=== PATIENT | male | born 1945 | race Caucasian/White ===

== ENCOUNTER → 2017-06-05 | Outpatient (CLI) | payer MEDICARE ==
--- NOTE | 2017-06-05 09:56 | RAD ---
EXAM DESCRIPTION: Knee,Left Complete CLINICAL HISTORY: 72 years,Male,KNEE PAIN COMPARISON: None FINDINGS: The left knee demonstrates no fractures, dislocations, or other acute bony abnormalities. The joint spaces complete loss of joint space and medial compartment with subchondral sclerosis. And moderate osteophyte changes. This results in widening of the lateral compartment also has moderate ossified changes. And moderate osteophytes of the patellofemoral compartment with moderate loss of joint space. And large enthesophytes on the patella with the patellar tendon being 1.4 cm long enthesophyte and the quadriceps 9 mm. The soft tissues are unremarkable. No joint effusion. IMPRESSION: Left knee demonstrates severe medial compartment osteoarthritic changes and moderate patellofemoral. And mild lateral. Electronically signed by: Yusef Kang MD 06/05/2017 9:54 AM CDT
--- NOTE | 2017-06-05 09:58 | RAD ---
EXAM DESCRIPTION: Pelvis CLINICAL HISTORY: 72 years, Male, HIP PAIN COMPARISON: None. FINDINGS: Pelvis demonstrates no fractures or other acute adenitis. Mild ossified changes seen in the inferior SI joints. Mild loss of joint space and superior aspect of the hip joints. IMPRESSION: Mild SI joint and hip joint bilateral osteoarthritic changes of the pelvis. And mild loss of disc height at L4-5. Electronically signed by: Yusef Kang MD 06/05/2017 9:56 AM CDT
== END | disposition home or self-care (01) ==
LOC: RAD 08:05
PROVIDERS: ATTEND Orthopaedic Surgery
DX: M25.561 Pain in right knee (principal); M25.551 Pain in right hip

== ENCOUNTER → 2017-07-01 | Outpatient (CLI) | payer MEDICARE | END | disposition home or self-care (01) | LOC: LAB.O 08:32 | PROVIDERS: ATTEND Orthopaedic Surgery | DX: Z01.818 Encounter for other preprocedural examination (principal) ==

== ENCOUNTER → 2017-07-09 | Outpatient (CLI) | payer MEDICARE | END | disposition home or self-care (01) | LOC: GMAL 14:15 | PROVIDERS: ATTEND Family Medicine | DX: R30.0 Dysuria (principal) ==

== ENCOUNTER 2017-07-18 18:41 | Emergency (ER) | payer MEDICARE ==
[2017-07-18 19:16] VITALS: O2SAT 97
--- NOTE | 2017-07-18 19:30 | ED.PDOC ---
History of Present Illness - General Chief Complaint: Upper Extremity Injury Stated Complaint: left wrist pain Time Seen by Provider: 07/18/17 18:47 Source: patient Exam Limitations: no limitations Additional Information: THIS PATIENT COMES TO THE ED WITH A ONE WEEK HX OF LEFT WRIST PAIN. IT SEEMS TO HURT UPON MOVEMENT. HIS FATHER IN LAW RECENTLY AND HE ASSISTED IN THE MOVEMENT FROM THE BED TO THE CHAIR ETC. HE BELIEVES THAT HE INJURED THE WRIST THEN. DENIES ANY FEVER. - History of Present Illness Occurred: other - ONE WEEK AGO Pain - Upper Extremity: moderate: Wrist, left Method of Injury: twisted Improving Factors: nothing Worsening Factors: movement Associated Symptoms: DENIES FEVER OR CHEST PAIN. Allergies/Adverse Reactions: Allergies NO KNOWN ALLERGY Allergy (Verified 07/18/17 19:16) Home Medications: Ambulatory Orders Diclofenac Potassium 50 mg PO BID #14 tab 07/18/17 Review of Systems - Review of Systems Constitutional: States: no symptoms reported. Denies: chills, fever EENTM: States: no symptoms reported Respiratory: States: no symptoms reported Cardiology: Denies: chest pain, palpitations, syncope Gastrointestinal/Abdominal: States: no symptoms reported Genitourinary: States: no symptoms reported Musculoskeletal: States: back pain, other - LEFT SIDED WRIST PAIN Skin: States: no symptoms reported Neurological: States: no symptoms reported Endocrine: States: no symptoms reported Hematologic/Lymphatic: States: no symptoms reported Past Medical History (General) - Patient Medical History Hx Cardiac Disorders: Yes - stent Hx Diabetes: Yes Surgical History: other - Vaccination History Hx Tetanus, Diphtheria Vaccination: Yes Hx Influenza Vaccination: No Hx Pneumococcal Vaccination: Yes - Social History Hx Alcohol Use: No Family Medical History - Family History Father Living Status: Hx Cardiac Disease: Yes Physical Exam - Physical Exam General Appearance: Alert, Obese, Well Groomed, Other - MILD DISTRESS Eyes, Ears, Nose, Throat Exam: PERRL/EOMI, normal ENT inspection Neck: non-tender, full range of motion, supple Cardiovascular/Respiratory: regular rate, rhythm, normal peripheral pulses, no JVD, normal breath sounds, no respiratory distress Abdominal Exam: non-tender, no organomegaly, no hernia Back Exam: normal inspection Shoulder Exam: normal inspection Wrist Exam: limited ROM, pain, soft tissue tenderness Hand Exam: normal inspection, non-tender, no evidence of injury, normal ROM Neuro/Tendon: normal sensation, normal motor functions, normal tendon functions Mental Status: alert, oriented x 3 Skin Exam: normal color Progress - Results/Orders Results/Orders: THE WRIST X RAY REPORTS NO FRACTURE OR DISLOCATION. DJD IS NOTED. HE WILL BE DISCHARGED HOME. Departure - Departure Clinical Impression: Left wrist sprain Qualifiers: Encounter type: initial encounter Qualified Code(s): S63.502A - Unspecified sprain of left wrist, initial encounter Time of Disposition: 20:09 Disposition: Discharge to Home or Self Care Condition: Good Departure Forms: ED Discharge - Pt. Copy, Patient Portal Self Enrollment Instructions: DI for Arm Pain Referrals: Yusef Eagle III, MD [Primary Care Provider] - 1-2 Weeks Prescriptions: Diclofenac Potassium 50 mg PO BID #14 tab Home Medications: Ambulatory Orders Diclofenac Potassium 50 mg PO BID #14 tab 07/18/17
--- NOTE | 2017-07-18 19:40 | RAD ---
PROCEDURE: Wrist,Left 3 Views CLINICAL HISTORY: left wrist pain INDICATION: Same as above COMPARISON: None. TECHNIQUE: 3.0 Views of the left wrist were done. FINDINGS: There is no evidence of acute fractures or dislocation involving the bones of the left wrist. Degenerative changes seen at the level of the first carpometacarpal joint. Degenerative changes also seen in the interphalangeal joints of the second through the fifth digit of the left hand The joint spaces of the left wrist are relatively well-maintained. The bone mineralization is normal for patient's age and sex. The soft tissues are radiographically unremarkable. There is no visualization of any radiopaque foreign bodies. If the wrist pain persists, repeat films can be done in 7-10 days interval to rule out currently radiographically occult fractures. Alternatively an MRI of the wrist can be obtained to rule out any occult fractures or bone marrow edema. IMPRESSION: There is no evidence of acute fractures or dislocation involving the bones of the left wrist. Degenerative changes seen at the level of the first carpometacarpal joint. Degenerative changes also seen in the interphalangeal joints of the second through the fifth digit of the left hand Place of interpretation: [id number]. Electronically signed by: Lui Fuentes MD 07/18/2017 7:39 PM CDT Workstation: [id number]
[2017-07-18 20:34] VITALS: BP 124/93; TEMP 97.2
== END 2017-07-18 20:30 | disposition home or self-care (01) ==
LOC: ER 18:41
DX: S63.502A Unspecified sprain of left wrist, initial encounter (principal); E11.9 Type 2 diabetes mellitus without complications; Z98.61 Coronary angioplasty status; X58.XXXA Exposure to other specified factors, initial encounter; Y92.9 Unspecified place or not applicable

== ENCOUNTER 2017-08-06 03:58 | Inpatient (IN) | payer MEDICARE ==
--- NOTE | 2017-08-05 15:42 | HP ---
CHIEF COMPLAINT: Left knee pain. HISTORY OF PRESENT ILLNESS: Mr. Leal is a 72-year-old male with a history of severe pain in the left knee that has been getting progressively worse over the years. He has had a right total knee replacement done previously. He has had no trauma related to the onset of his left knee pain and denies any neurologic symptoms. He has had to use an assistive device for walking. He has had injections and anti-inflammatories in the past. Despite all these measures, he has failed to gain relief. He is requesting operative intervention because of that failure. After discussing the risks, benefits and alternatives to that, the patient has given informed consent. PAST SURGICAL HISTORY: 1. Total knee arthroplasty. MEDICATIONS: 1. NovoLog. 2. Isosorbide. 3. Losartan. 4. Metoprolol. 5. Aspirin. 6. Atorvastatin. 7. Nitroglycerin p.r.n. ALLERGIES: PENICILLIN. CODE STATUS: Full code. IMMUNIZATIONS: Up to date. SOCIAL HISTORY: The patient does not smoke or use any illicit drugs. He does drink on occasion. FAMILY HISTORY: None pertinent to today's complaint. REVIEW OF SYSTEMS: Negative except as indicated in the History of Present Illness. PHYSICAL EXAMINATION: VITAL SIGNS: Blood pressure 124/70. Pulse 73. Height 5'5". Weight 236. GENERAL: He is an obese male in no acute distress. MENTAL STATUS: The patient is awake, alert, and is able to give a good history and participate in the physical. The patient is oriented to person, place and time. SKIN: Normal tone and turgor. HEENT: Normocephalic, atraumatic. Pupils equal, round and reactive. Mucosal membranes are moist. NECK: Normal range of motion. No thyromegaly, no lymphadenopathy. CHEST: Normal respiratory excursion. CARDIAC: Regular rate and rhythm. No murmurs, rubs or gallops. MUSCULOSKELETAL: The bilateral upper extremities show full active range of motion without pain. He has intact sensation. They are warm and well perfused. He has no deformity. Strength is 5/5. He has no crepitus or malalignment. The right lower extremity shows full range of motion in the hip. The knee shows full extension, but flexion is only to about 85 to 90 degrees. He has a well-healed wound anteriorly. The left knee shows full extension, but flexion is only to about 90 degrees right now. He has crepitus throughout his range of motion. He has severe pain with range of motion as well as pain with palpation. He does not appear to have any varus/valgus or anterior/ posterior laxity at this time. IMAGING: X-rays show severe arthritis. ASSESSMENT: 1. Osteoarthritis. PLAN: The plan at this point is for total knee arthroplasty. We have discussed the risks, benefits, and alternatives to that and the patient has given informed consent. #[id number] [facility]
[2017-08-06] MEDS ORDERED: VANCOMYCIN HCL INJ 1,000 MG VIAL IVPB ONE ×2 (06:07→20:01)
[2017-08-06] MEDS ORDERED: LACTATED RINGERS 1,000 ML ONE ×2 (06:07→09:02)
[2017-08-06] MEDS ORDERED: ceFAZolin SODIUM 1 GM VIAL ONE ×2 (06:07→07:06)
[2017-08-06] MEDS ORDERED: TRANEXAMIC ACID 1,000 MG/10 ML VIAL ONE ×2 (06:07→06:08)
[2017-08-06] MEDS ORDERED: SODIUM CHL 0.9% 100ML MINI-BAG 100 ML IVPB ONE (06:07)
[2017-08-06] MEDS ORDERED: SODIUM CHLORIDE 0.9% 250ML 250 ML ONE ×2 (06:08→20:00)
[2017-08-06] MEDS ORDERED: SODIUM CHLORIDE 0.9% 100ML 100 ML IVPB ONE (06:08)
[2017-08-06] MEDS ORDERED: TRANEXAMIC ACID INJ 1,000 MG in SODIUM CHLORIDE 0.9% 100ML 100 ML IVPB ONE (06:52)
[2017-08-06] MEDS ORDERED: MAGNESIUM HYDROXIDE 30 ML UD PO PRN (06:52)
[2017-08-06] MEDS ORDERED: NALOXONE HCL INJ 0.4 MG/ML VIAL IV PRN (06:52)
[2017-08-06] MEDS ORDERED: ACETAMINOPHEN 500 MG TAB PO PRN (06:52)
[2017-08-06] MEDS ORDERED: ZOLPIDEM TARTRATE 5 MG TAB PO PRN (06:52)
[2017-08-06] MEDS ORDERED: PROMETHAZINE HCL INJ 12.5 MG in SODIUM CHLORIDE 0.9% 50ML 50 ML IVPB PRN (06:52)
[2017-08-06] MEDS ORDERED: PROMETHAZINE HCL INJ 25 MG in SODIUM CHLORIDE 0.9% 50ML 50 ML IVPB PRN (06:52)
[2017-08-06] MEDS ORDERED: ACETAMINOPHEN 325 MG TAB PO PRN (06:52)
[2017-08-06] MEDS ORDERED: MORPHINE SULFATE INJ 10 MG/ML VIAL IM PRN (06:52)
[2017-08-06] MEDS ORDERED: MORPHINE SULFATE INJ 10 MG/ML VIAL IV PRN (06:52)
[2017-08-06] MEDS ORDERED: BENZOCAINE-MENTH LOZ (CEPACOL) 1 EA LOZ MT PRN (06:52)
[2017-08-06] MEDS ORDERED: BISACODYL SUPPOSITORY 10 MG PR PRN (06:52)
[2017-08-06] MEDS ORDERED: MORPHINE PCA 1 MG/ML 100ML 1 BAG in PREMIX BAG 1 BAG IVPB SCH (07:00)
[2017-08-06] MEDS ORDERED: MORPHINE SULFATE *EPIDURAL* 0.5 MG/ML VIAL ONE (09:01)
[2017-08-06] MEDS ORDERED: fentaNYL CITRATE INJ 50 MCG/ML AMP ONE (09:01)
[2017-08-06] MEDS ORDERED: ROCURONIUM BROMIDE 10 MG/ML VIAL ONE (09:02)
[2017-08-06] MEDS ORDERED: PROPOFOL 200 MG/20 ML VIAL IV ONE (10:00)
[2017-08-06] MEDS ORDERED: ONDANSETRON INJ 4 MG/2 ML VIAL IV ONE (10:00)
[2017-08-06] MEDS ORDERED: NEOSTIGMINE METHYLSULFATE 1 MG/ML ML IV ONE (10:00)
[2017-08-06] MEDS ORDERED: METOCLOPRAMIDE HCL INJ 10 MG/2 ML VIAL IV ONE (10:00)
[2017-08-06] MEDS ORDERED: ATROPINE SULFATE 0.4 MG/ML 1ML VIAL IV ONE (10:00)
[2017-08-06] MEDS: BUPIVACAINE 0.25% W/EPI 50 ML VIAL INJ ONE ×2 (11:09→13:07)
[2017-08-06] MEDS: ceFAZolin SODIUM 1 GM VIAL ONE ×2 (11:09→12:21)
[2017-08-06] MEDS: VANCOMYCIN HCL INJ 1,000 MG VIAL IVPB ONE ×2 (11:09→12:21)
[2017-08-06] MEDS ORDERED: MORPHINE PCA 1 MG/ML 100 ML BAG IVPB ONE (12:36)
[2017-08-06] MEDS ORDERED: SODIUM CHLORIDE 0.9% 1000ML 0 ML ONE (15:24)
[2017-08-06] MEDS: IV SET AND CAP CHANGE INJ INJ SCH (15:28)
[2017-08-06] MEDS: MAGNESIUM OXIDE 400 MG TAB PO SCH (15:29)
[2017-08-06] MEDS: CELECOXIB 100 MG CAP PO SCH ×2 (15:29→16:44)
[2017-08-06] MEDS: SODIUM CHLORIDE 0.45% 1000ML 1,000 ML IVS PRN (15:34)
[2017-08-06] MEDS ORDERED: CEFAZOLIN SODIUM 2 GRAMS IV 2 GM in PREMIX BAG 1 BAG IVPB SCH (16:00)
[2017-08-06] MEDS ORDERED: diphenhydrAMINE HCL 25 MG CAP PO PRN (16:27)
[2017-08-06] MEDS ORDERED: diphenhydrAMINE HCL 25 MG CAP ONE (16:27)
[2017-08-06] MEDS: INSULIN LISPRO 100 UNITS/ML PEN SUBCU SCH ×2 (16:43→16:44)
[2017-08-06] MEDS ORDERED: CEFAZOLIN SODIUM 2 GRAMS IV 50 ML IVPB ONE (17:48)
[2017-08-06] MEDS ORDERED: VANCOMYCIN HCL INJ 1,000 MG in SODIUM CHLORIDE 0.9% 250ML 250 ML IVPB SCH (18:00)
[2017-08-06] MEDS: CEFAZOLIN SODIUM 2 GRAMS IV 2 GM in PREMIX BAG 1 BAG IVPB SCH (18:23)
--- NOTE | 2017-08-06 18:39 | CONS ---
DATE OF CONSULTATION: 08/06/17 HISTORY OF PRESENT ILLNESS: This 72 year-old white male was admitted to the hospital earlier this morning for elective surgical intervention because of worsening left knee pain. He had previously had surgery on his right knee and was replaced in 1993. Since then it has also gotten worse and will eventually require replacement by Dr. Maynard sometime next year. He has gotten on an exercise program and a diet intervention, and has lost about 40 pounds in recent months, but after moving to [place] to work. He was having to eat out in restaurants and gain most of that weight back subsequently with increasing pain in the left knee noted. No specific injuries were noted to the knee but that pain has been getting worse for the last 2 years. Also of note is the diabetes mellitus present currently on insulin therapy for the last 8 or 9 months being followed closely by Dr. [facility] The patient tolerated the surgical procedure quite well and is now entered into the postoperative rehabilitation phase, and will require close observation, management and followup until the patient is able to safely return home. PAST MEDICAL HISTORY: PAST SURGICAL HISTORY: 1. Right knee replacement surgery in 1993. 2. Coronary stent in the left main coronary in 2013 placed 1 week after onset of significant coronary symptoms with no specific coronary damage otherwise evident. CURRENT MEDICATIONS: Please refer to medicines list by the nurse which has been verified. ALLERGIES: PENICILLIN. FAMILY HISTORY: Positive for diabetes mellitus and coronary artery disease. 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 He has never smoked and rarely takes alcohol consumption. His is at home and they have recently moved into assist the 's mother after the 's father had recently. REVIEW OF SYSTEMS: Fairly significant weight gain recently with dietary principles not being able to be followed closely while having to work away from home. No significant fever or chills. HEENT: Hearing and vision are good. LUNGS: No significant shortness of breath except upon exertion. No hemoptysis. CARDIOVASCULAR: No significant chest pains recently or palpitations. GASTROINTESTINAL: Appetite is fairly good. No vomiting. No hemoptysis. Hematemesis and no melena. GENITOURINARY: No dysuria. EXTREMITIES: Significant pain in both knees more prominent now on the left requiring total knee replacement with previous replacement on the right requiring repeat surgical intervention at a future date. NEUROLOGIC: No focal neurological deficits. PHYSICAL EXAMINATION: VITAL SIGNS: Afebrile, pulse 69, blood pressure 151/71, pulse oximetry 92% on mask. Weight 149 stated by the patient. The patient will still need to be weighed. This weight is in kilograms. GENERAL: The patient is awake and alert, though resting in between. Pain relief has been fairly good with the morphine pump. The patients i describing an itching sensation which will be approached to see if it will be relieved by conservative treatment. CHEST: Lungs generally clear. HEART: Tones regular. ABDOMEN: Obese yet soft. EXTREMITIES: Left knee shows dressing is dry. The patient has completed the range of motion exercise and is tolerating the rest. NEUROLOGIC: No focal neurological deficits. LABORATORY: The only lab are sugars which are 196 now postoperatively and close to the time of his dinner of clear liquids. ASSESSMENT: 1. Immediate postoperative day zero total left knee arthroplasty performed by Dr. Maynard earlier this morning. 2. Chronic osteoarthritis with outpatient modalities failing to show improvement and requiring surgical intervention to assist with symptom control. 3. Diabetes mellitus insulin dependent requiring further monitoring and management of current treatment program. 4. Hypertension. 5. History of coronary artery disease having received a coronary stent 3 years ago. PLAN: Will continue with close observation with diabetes management. Sliding scale and adjust Toujeo concentrated insulin as required. Special attention to blood pressure management. Review medicines with the patient prior to discharge. Continue with rehabilitation under Physical Therapy and Orthopedic supervision until the patient is able to safely return home. Continue with efforts to control diabetes and to lose weight. Close followup suggested. #[id number] [facility]
[2017-08-06] MEDS ORDERED: DOCUSATE CALCIUM 240 MG CAP ONE (20:01)
[2017-08-06] MEDS ORDERED: ENOXAPARIN SODIUM 30 MG/0.3 ML SYG SUBCU ONE (20:01)
[2017-08-06] MEDS ORDERED: INSULIN GLARGINE 28 UNIT SC SCH (21:00)
[2017-08-06] MEDS: DOCUSATE CALCIUM 240 MG CAP PO SCH (21:15)
[2017-08-06] MEDS: VANCOMYCIN HCL INJ 1,000 MG in SODIUM CHLORIDE 0.9% 250ML 250 ML IVPB SCH (21:16)
[2017-08-06] MEDS: SODIUM CHLORIDE 0.9% (FLUSH) 10 ML SYG IV PRN (21:16)
[2017-08-06] MEDS: ENOXAPARIN SODIUM 30 MG/0.3 ML SYG SUBCU SCH (23:23)
[2017-08-07] MEDS ORDERED: CEFAZOLIN SODIUM 2 GRAMS IV 50 ML IVPB ONE ×4 (01:51→19:33)
--- NOTE | 2017-08-07 02:06 | RAD ---
EXAM DESCRIPTION: Knee,Left 2 or More Views CLINICAL HISTORY: 72 years Male, TKA COMPARISON: 06/05/2017 FINDINGS: Left total knee arthroplasty with hardware appearing to be in appropriate position. Postoperative changes within the soft tissues of the knee. Osteopenia. No acute fractures. IMPRESSION: 1. Immediate postoperative imaging of left total knee arthroplasty without abnormality identified. Electronically signed by: Lennox Noe 08/07/2017 2:05 AM CDT
[2017-08-07] MEDS: CEFAZOLIN SODIUM 2 GRAMS IV 2 GM in PREMIX BAG 1 BAG IVPB SCH ×3 (02:22→18:02)
[2017-08-07] MEDS ORDERED: SODIUM CHLORIDE 0.9% 250ML 250 ML ONE ×2 (07:18→19:33)
[2017-08-07] MEDS ORDERED: VANCOMYCIN HCL INJ 1,000 MG VIAL IVPB ONE ×2 (07:18→19:33)
[2017-08-07] MEDS: INSULIN LISPRO 100 UNITS/ML PEN SUBCU SCH ×6 (07:36→16:49)
[2017-08-07] MEDS: CELECOXIB 100 MG CAP PO SCH ×2 (07:39→16:54)
[2017-08-07] MEDS: MAGNESIUM OXIDE 400 MG TAB PO SCH (08:29)
[2017-08-07] MEDS: LOSARTAN POTASSIUM 100 MG TAB PO SCH (08:29)
[2017-08-07] MEDS: METOPROLOL SUCCINATE XL 25 MG TAB PO SCH (08:29)
--- NOTE | 2017-08-07 08:34 | OP ---
DATE OF PROCEDURE: 08/06/17 PREOPERATIVE DIAGNOSIS: 1. Osteoarthritis of the left knee. POSTOPERATIVE DIAGNOSIS: 1. Osteoarthritis of the left knee. PROCEDURE: 1. Left total knee arthroplasty. SURGEON: Travis Maynard MD. BEAD WORKER SEWING: Isrrael Chun CST, SA-C. ANESTHESIA: General. COMPLICATIONS: None. FINDINGS: Severe osteoarthritis of the knee. INDICATION: Mr. Leal has had a long history of pain in the knee and has had contralateral total knee replacement. He has had severe pain going on now on his left knee that has been disabling. He has also noticed increasing varus deformity which is necessitating him to use a cane. Because of his ongoing pain and failure of conservative measures and effects on daily living, he has requested operative intervention. After discussing the risks, benefits and alternatives to that, the patient has given informed consent for total knee arthroplasty. PROCEDURE: The patient was brought to the Operating Room and placed in supine position. General anesthesia was induced and the patient's leg was sterilely prepped and draped. Following prepping and draping, the distal femur was exposed and using an intramedullary guide, the distal femoral cut was made. The appropriate sized cutting block was measured, pinned into place, and the anterior, posterior, and chamfer cuts were made. The ACL was transected and the tibia was subluxed. Both the medial and lateral menisci were removed. An intramedullary guide was used to make the proximal tibial cut. The appropriate sized base plate was placed and a trial polyethylene was placed. The trial femur was placed, the knee was reduced, and the knee was taken through a range of motion. The knee was stable in anterior, posterior, varus and valgus stress. The patella tracked anatomically without evidence of subluxation or dislocation. After trialing, the trial components were removed and the bony surfaces were thoroughly irrigated with saline. Following irrigation, the surfaces were dried and the final components were cemented into place. The excess cement was removed and the remaining cement was allowed to cure. The knee was again taken through a range of motion to confirm stability. The wound was then irrigated with saline and closure was performed using PDS to approximate the arthrotomy followed by closure of the subcutaneous tissues with a combination of running and interrupted Monocryl sutures. Sterile dressing was placed. The patient was awoken from anesthesia and taken to Recovery. POSTOPERATIVE INSTRUCTIONS: The patient will be weight-bearing as tolerated on postoperative day 1. COMPONENTS: Tyler Triathlon knee, size 5 femur, size 5 tibia, 11 mm insert. #[id number] [facility]
[2017-08-07] MEDS: VANCOMYCIN HCL INJ 1,000 MG in SODIUM CHLORIDE 0.9% 250ML 250 ML IVPB SCH ×2 (09:02→21:36)
[2017-08-07] MEDS: ENOXAPARIN SODIUM 30 MG/0.3 ML SYG SUBCU SCH ×2 (11:06→22:54)
[2017-08-07] MEDS ORDERED: INSULIN DETEMIR 100 UNITS/ML PEN SUBCU ONE (19:31)
[2017-08-07] MEDS: INSULIN DETEMIR 100 UNITS/ML PEN SUBCU SCH (21:35)
[2017-08-07] MEDS: DOCUSATE CALCIUM 240 MG CAP PO SCH (21:37)
[2017-08-07] MEDS: TEMAZEPAM 15 MG CAP PO PRN (22:54)
[2017-08-08] MEDS: SODIUM CHLORIDE 0.45% 1000ML 1,000 ML IVS PRN (00:17)
[2017-08-08] MEDS: CEFAZOLIN SODIUM 2 GRAMS IV 2 GM in PREMIX BAG 1 BAG IVPB SCH ×3 (02:02→18:03)
[2017-08-08] MEDS: HYDROcodone 5MG/APAP 325MG 1 EA TAB PO PRN ×3 (05:40→21:42)
[2017-08-08] MEDS: CYCLOBENZAPRINE HCL 10 MG TAB PO PRN (05:40)
[2017-08-08] MEDS: INSULIN LISPRO 100 UNITS/ML PEN SUBCU SCH ×6 (08:58→17:10)
[2017-08-08] MEDS ORDERED: SODIUM CHLORIDE 0.9% 250ML 250 ML ONE ×2 (09:13→20:31)
[2017-08-08] MEDS ORDERED: VANCOMYCIN HCL INJ 1,000 MG VIAL IVPB ONE ×2 (09:14→20:33)
[2017-08-08] MEDS: CELECOXIB 100 MG CAP PO SCH ×2 (09:44→17:14)
[2017-08-08] MEDS: MAGNESIUM OXIDE 400 MG TAB PO SCH (09:44)
[2017-08-08] MEDS: SODIUM CHLORIDE 0.9% (FLUSH) 10 ML SYG IV SCH ×2 (09:44→21:43)
[2017-08-08] MEDS: LOSARTAN POTASSIUM 100 MG TAB PO SCH (09:44)
[2017-08-08] MEDS: METOPROLOL SUCCINATE XL 25 MG TAB PO SCH (09:44)
[2017-08-08] MEDS: VANCOMYCIN HCL INJ 1,000 MG in SODIUM CHLORIDE 0.9% 250ML 250 ML IVPB SCH ×2 (09:45→21:42)
--- NOTE | 2017-08-08 10:23 | PN ---
DATE: 08/07/17 SUBJECTIVE: The patient is sitting up in the bed. He has been able to bear weight to the chair several times today as well as walk up and down part of the hallway successfully. The pain seems to be a little more prominent today than yesterday, primarily because of the absorption of the Astramorph. He has a good attitude, is breathing deeply. Appetite is good. OBJECTIVE: Afebrile, pulse 87, blood pressure 160/81. Pulse 87 on room air. Pulse oximetry 90% up to 97%. Lungs are slightly diminished, otherwise clear. Heart tones regular. Abdomen is obese yet soft. Extremities show dressing to be clean at this time over the left knee and he has completed his passive range of motion exercise this evening. ASSESSMENT: 1. Postoperative day #1 left total knee arthroplasty performed by Dr. Maynard, orthopedic surgeon. 2. Chronic osteoarthritis failing outpatient therapy and requiring surgical intervention to assist with symptom control. 3. Diabetes mellitus with continued monitoring and management. 4. History of hypertension. PLAN: Continue with rehabilitation and anticipate [facility] after discharge when safe to return home. Reevaluate in the morning and discuss with the therapist his ongoing response to treatment. #[id number] [facility]
[2017-08-08] MEDS ORDERED: CEFAZOLIN SODIUM 2 GRAMS IV 50 ML IVPB ONE ×2 (11:17→16:22)
[2017-08-08] MEDS: ENOXAPARIN SODIUM 30 MG/0.3 ML SYG SUBCU SCH ×2 (11:25→22:40)
[2017-08-08] MEDS: DOCUSATE CALCIUM 240 MG CAP PO SCH (21:42)
[2017-08-08] MEDS: TEMAZEPAM 15 MG CAP PO PRN (21:42)
[2017-08-08] MEDS: INSULIN DETEMIR 100 UNITS/ML PEN SUBCU SCH (21:46)
--- NOTE | 2017-08-08 21:54 | PN ---
DATE: 08/08/17 SUBJECTIVE: The patient is sitting up in the bed. He is fully awake and alert. No shortness of breath. Appetite is good. He has not had a bowel movement and a dose of Milk of Magnesia will be offered him in the morning. He seems to be tolerating his rehabilitation today quite well and this will continue. OBJECTIVE: Afebrile, pulse 71, blood pressure 138/88, pulse oximetry 96% on 2 liters nasal cannula. Hemoglobin yesterday postoperatively was 12.3. LUNGS: Clear though diminished breath sounds. HEART: Tones regular. ABDOMEN: Obese yet soft. No bowel movements recently. The wound on the left knee is clean and he is tolerating the passive range of motion machine well. Diabetes seems to be fairly stable at this time with recent blood sugars of approximately 200. ASSESSMENT: 1. Postoperative day number 2 total left knee arthroplasty. 2. Chronic osteoarthritis having failed outpatient therapy and requiring surgical intervention to assist with symptom control and pain relief. 3. Chronic diabetes mellitus on insulin therapy. 4. Hypertension. 5. Obesity. 6. Mild constipation. PLAN: Try Milk of Magnesia in the morning. To discuss with rehab team how he is doing. Anticipate possibility of Swing Bed rehabilitation if required to allow him to more adequately return home in a safe condition and prevent fall risk. This will be discussed tomorrow with the rehab therapist. #[id number] [facility]
[2017-08-09] MEDS: ONDANSETRON INJ 4 MG/2 ML VIAL IV PRN ×2 (00:05→13:59)
[2017-08-09] MEDS ORDERED: CEFAZOLIN SODIUM 2 GRAMS IV 50 ML IVPB ONE ×2 (02:11→11:50)
[2017-08-09] MEDS: CEFAZOLIN SODIUM 2 GRAMS IV 2 GM in PREMIX BAG 1 BAG IVPB SCH ×2 (02:31→11:56)
[2017-08-09] MEDS ORDERED: MAGNESIUM HYDROXIDE 30 ML UD PO ONE ×2 (07:30→21:00)
[2017-08-09] MEDS: INSULIN LISPRO 100 UNITS/ML PEN SUBCU SCH ×6 (07:40→17:43)
[2017-08-09] MEDS ORDERED: SODIUM CHLORIDE 0.9% 250ML 250 ML ONE (08:10)
[2017-08-09] MEDS ORDERED: VANCOMYCIN HCL INJ 1,000 MG VIAL IVPB ONE (08:11)
[2017-08-09] MEDS: CELECOXIB 100 MG CAP PO SCH ×2 (08:33→17:43)
[2017-08-09] MEDS: IV SET AND CAP CHANGE INJ INJ SCH (08:33)
[2017-08-09] MEDS: SODIUM CHLORIDE 0.9% (FLUSH) 10 ML SYG IV SCH ×2 (09:42→20:02)
[2017-08-09] MEDS: LOSARTAN POTASSIUM 100 MG TAB PO SCH (09:43)
[2017-08-09] MEDS: MAGNESIUM OXIDE 400 MG TAB PO SCH (09:43)
[2017-08-09] MEDS: METOPROLOL SUCCINATE XL 25 MG TAB PO SCH (09:43)
[2017-08-09] MEDS: VANCOMYCIN HCL INJ 1,000 MG in SODIUM CHLORIDE 0.9% 250ML 250 ML IVPB SCH (10:05)
[2017-08-09] MEDS: ENOXAPARIN SODIUM 30 MG/0.3 ML SYG SUBCU SCH ×2 (11:55→22:47)
[2017-08-09] MEDS: ALUMINUM & MAGNESIUM HYDROXIDE 30 ML UD PO PRN (13:59)
[2017-08-09] MEDS ORDERED: MAGNESIUM HYDROXIDE 30 ML UD PO PRN (15:32)
--- NOTE | 2017-08-09 16:52 | PN ---
DATE: 08/09/17 SUPERVISING PHYSICIAN: Demond Sierra M.D. SUBJECTIVE: The patient is lying in his hospital bed. He had complained of stomach pain with nausea and acid reflux earlier, but he was given some Mylanta and walked in the hallways, and has since had several bowel movements and feels he is much improved. Otherwise no complaints of chest pain, shortness of breath. OBJECTIVE: VITAL SIGNS: He is afebrile, heart rate 75, blood pressure 149/77, respiratory rate 18, O2 sat is 94% on room air. RESPIRATORY: Essentially clear to auscultation bilaterally. CARDIAC: Regular rate and rhythm. ABDOMEN: Soft, rounded, obese. Slightly hyperactive bowel sounds. It is non-tender. EXTREMITIES: Bilateral pedal pulses are palpable at +2. The dressing on his left knee is dry and intact. NEUROLOGIC: He is awake, alert and oriented times three. LABORATORY: Blood sugars have run between 182 and 209. There are no other labs or films to report at this time. ASSESSMENT: 1. Osteoarthritis especially of the left knee status post left total knee arthroplasty postoperative day #[address] Travis Maynard, orthopedic surgeon. 2. Chronic diabetes mellitus. 3. Hypertension. 4. Obesity. 5. Mild constipation. PLAN: We will continue present supportive care. I have given him a p.r.n. dosing of Milk of Magnesia. As he moves around his bowel function should improve. Vancomycin and Ancef were discontinued. I have also put him on some Align probiotics. I have ordered a CBC and BMP for the morning. Strengthening and conditioning will be per physical therapy. Orthopedic issues will be per Dr. Maynard. Otherwise we will continue to monitor him closely and followup as needed. Anticipated discharge will be tomorrow with outpatient physical therapy at the [facility]. Dr. Sierra is the collaborating physician available for consultation. #[id number] [facility]
[2017-08-09] MEDS ORDERED: BIFIDOBACTERIUM INFANTIS 4 MG CAP ONE (19:49)
[2017-08-09] MEDS: BIFIDOBACTERIUM INFANTIS 4 MG CAP PO SCH (20:01)
[2017-08-09] MEDS: DOCUSATE CALCIUM 240 MG CAP PO SCH (20:02)
[2017-08-09] MEDS ORDERED: ASPIRIN TABLET 325 MG TAB PO SCH (20:30)
[2017-08-09] MEDS ORDERED: BISACODYL SUPPOSITORY 10 MG PR ONE (21:00)
[2017-08-09] MEDS: INSULIN DETEMIR 100 UNITS/ML PEN SUBCU SCH (21:13)
[2017-08-10] MEDS: TEMAZEPAM 15 MG CAP PO PRN (00:03)
[2017-08-10] MEDS: HYDROcodone 5MG/APAP 325MG 1 EA TAB PO PRN (00:04)
[2017-08-10] MEDS: INSULIN LISPRO 100 UNITS/ML PEN SUBCU SCH ×5 (07:38→18:15)
[2017-08-10] MEDS: CELECOXIB 100 MG CAP PO SCH ×2 (07:53→17:00)
[2017-08-10] MEDS: MAGNESIUM OXIDE 400 MG TAB PO SCH (09:28)
[2017-08-10] MEDS: BIFIDOBACTERIUM INFANTIS 4 MG CAP PO SCH ×2 (09:28→20:36)
[2017-08-10] MEDS: LOSARTAN POTASSIUM 100 MG TAB PO SCH (09:28)
[2017-08-10] MEDS: SODIUM CHLORIDE 0.9% (FLUSH) 10 ML SYG IV SCH ×2 (09:28→20:37)
[2017-08-10] MEDS: METOPROLOL SUCCINATE XL 25 MG TAB PO SCH (09:28)
[2017-08-10] MEDS: ENOXAPARIN SODIUM 30 MG/0.3 ML SYG SUBCU SCH ×2 (11:02→22:36)
--- NOTE | 2017-08-10 11:33 | PN ---
DATE: 08/09/17 SUBJECTIVE: Mr. Leal is doing really well and he has minimal pain. He is ambulating. OBJECTIVE: He is afebrile. Vital signs are stable. Wound is clean. There are no signs or symptoms of infection. ASSESSMENT: 1. Status post total knee arthroplasty. PLAN: At this point, Mr. Leal is doing well, however, he has a little bit of constipation. Otherwise he is doing well with his therapy. We are going to continue on with his therapy and will continue to manage his constipation. Will discharge him when his bowel movements have resumed normally. #[id number] [facility]
--- NOTE | 2017-08-10 11:45 | PN ---
DATE: 08/10/17 SUBJECTIVE: Mr. Leal subjectively is doing pretty well. He has no significant pain. He still has a little bit of constipation. OBJECTIVE: He is afebrile, vital signs are stable. Wound is clean. There are no signs or symptoms of infection. ASSESSMENT: 1. Status post total knee arthroplasty. PLAN: The plan at this point is for him to continue on with therapy. He will be discharged in the next day or two. #[id number] [facility]
[2017-08-10] MEDS: MAGNESIUM HYDROXIDE 30 ML UD PO SCH ×2 (12:22→16:07)
--- NOTE | 2017-08-10 15:53 | RAD ---
EXAM DESCRIPTION: Abdomen Flat Upright CLINICAL HISTORY: 72 years Male, abd pain COMPARISON: None. TECHNIQUE: Supine and upright views. 4 radiograph FINDINGS: Significant gaseous distention of colon, probably due to ileus. If there is concern for obstruction, computed tomography of the abdomen and pelvis would be useful to further evaluate. No signs of pneumoperitoneum. No dilated small bowel loops seen. IMPRESSION: Probable colonic ileus. If there is concern for obstruction, computed tomography would be useful to further evaluate Electronically signed by: Bentley Miller 08/10/2017 3:52 PM CDT
[2017-08-10] MEDS ORDERED: DEXTROSE 50% 25 GM/50 ML SYG IV PRN (16:25)
[2017-08-10] MEDS ORDERED: GLUCAGON INJ 1 MG VIAL SUBCU PRN (16:25)
[2017-08-10] MEDS ORDERED: MORPHINE SULFATE INJ 10 MG/ML VIAL IV PRN (16:26)
[2017-08-10] MEDS: ONDANSETRON INJ 4 MG/2 ML VIAL IV PRN (17:49)
[2017-08-10] MEDS: KCL 20MEQ/D5 1/2NS 1,000 ML IVS PRN (17:50)
--- NOTE | 2017-08-10 17:51 | PN ---
DATE: 08/10/17 SUPERVISING PHYSICIAN: Demond Sierra M.D. SUBJECTIVE: The patient is sitting upon the side of the bed. He has had quite a bit of gas pain in his abdomen as well as acid reflux. He has received several doses of Milk of Magnesia as well as stool softener. Most of his bowel movements have been gas and water with minimal stool. He also received a soapsuds enema earlier today. Otherwise he has no complaints of chest pain, shortness of breath, nausea or vomiting. I explained to him that there were concerns for a postoperative ileus and at this time he would be NPO and we would reevaluate him in the morning. OBJECTIVE: VITAL SIGNS: He is afebrile, heart rate 80, blood pressure 142/88, respiratory rate 20, O2 sat 94%. RESPIRATORY: Essentially clear to auscultation bilaterally. CARDIAC: Regular rate and rhythm. ABDOMEN: Obese. It is diffusely tender but somewhat more tender in the left upper quadrant. Soft. Bowel sounds are positive but slightly more hyperactive in the right upper quadrant. EXTREMITIES: Bilateral pedal pulses are palpable +2. The dressing to his left knee is dry and intact. NEUROLOGIC: He is awake, alert and oriented times three. LABORATORY: WBCs are 8.0, hemoglobin 11.5 and hematocrit 35.4. Blood sugars have been running between 137 and 222. Sodium 142, potassium 3.5, chloride 105 , carbon dioxide 29, BUN 21, creatinine 0.7. RADIOLOGY: Abdominal x-ray per radiology interpretation shows probable colonic ileus and recommend CT if concerns for obstruction. All other labs and films have been reviewed via the EMR. ASSESSMENT: 1. Osteoarthritis especially of the left knee status post left total knee arthroplasty postoperative day #[address] Travis Maynard, orthopedic surgeon. 2. Possible postoperative ileus. 3. Chronic diabetes mellitus. 4. Hypertension. 5. Morbid obesity. 6. History of mild constipation. PLAN: We will continue present supportive care. The patient will be NPO and will put him on bowel rest. I have ordered an NG tube if needed for nausea and vomiting and/or gastric discomfort. He has received an enema today. We may need to do another one in the morning. I have started some IV fluids. Will repeat his labs in the morning as well as an abdominal x-ray. If the abdominal x-ray has not improved or the patient has not improved, we will need to do a CT of the abdomen. I have also started him on some IV pain medications. I have given him 14 units of Levemir tonight but I have discontinued his Levemir for now. He usually gets 28 units at night and we will reevaluate that based on his blood sugars tomorrow. I have changed his sliding scale to every 6 hours. I have also stopped his 6 additional units of NovoLog with his sliding scale insulin. I have encouraged the patient to walk frequently. Dr. Baker, general surgeon,may need to be consulted tomorrow or he may need to be transferred. At this point, his major complaint is gas pains and belching. Otherwise we will continue to monitor him closely and follow as needed. Dr. Sierra is the collaborating physician available for consultation. [facility][id number] [facility]
[2017-08-10] MEDS: HYDROmorphone HCL INJ 2 MG/ML VIAL IV PRN (20:27)
[2017-08-10] MEDS: DOCUSATE CALCIUM 240 MG CAP PO SCH (20:37)
[2017-08-10] MEDS ORDERED: INSULIN DETEMIR 100 UNITS/ML PEN SUBCU SCH (21:00)
[2017-08-11] MEDS: INSULIN LISPRO 100 UNITS/ML PEN SUBCU SCH ×4 (00:42→18:02)
[2017-08-11] MEDS: HYDROmorphone HCL INJ 2 MG/ML VIAL IV PRN ×4 (00:45→19:26)
[2017-08-11] MEDS: KCL 20MEQ/D5 1/2NS 1,000 ML IVS PRN ×3 (00:51→21:59)
--- NOTE | 2017-08-11 07:04 | RAD ---
EXAM DESCRIPTION: Abdomen Flat Upright CLINICAL HISTORY: 08/10/2017 COMPARISON: None. FINDINGS: Significant gaseous distention of the colon is unchanged in configuration. No definite free intraperitoneal air. Air-filled loops of small bowel are identified in the midabdomen. Visualized lung bases are clear. Degenerative change of the spine. IMPRESSION: 1. No significant interval change with persistent gaseous distention of the colon which may be related to ileus. If there is concern for obstruction CT would be recommended. Electronically signed by: Lennox Noe 08/11/2017 7:03 AM CDT
[2017-08-11] MEDS: CELECOXIB 100 MG CAP PO SCH ×2 (08:06→16:14)
[2017-08-11] MEDS: MAGNESIUM OXIDE 400 MG TAB PO SCH (08:38)
[2017-08-11] MEDS: LOSARTAN POTASSIUM 100 MG TAB PO SCH (08:38)
[2017-08-11] MEDS: METOPROLOL SUCCINATE XL 25 MG TAB PO SCH (08:38)
[2017-08-11] MEDS: BIFIDOBACTERIUM INFANTIS 4 MG CAP PO SCH ×2 (08:38→20:44)
--- NOTE | 2017-08-11 08:58 | CT ---
PROCEDURE: Abdoment/Pelvis w/o Contrast HISTORY: abdominal pain Indication: Same as above Comparison: None Technique: CT of the abdomen and pelvis was done without intravenous contrast. Images were obtained from the lung base to the level of the pubic symphysis in axial plane, followed by orthogonal sagittal and coronal reconstruction. Oral contrast was not given for the study. This exam was performed according to our departmental dose-optimization program, which includes automated exposure control, adjustment of the mA and/or KV according to the patient's size and/or use of iterative reconstruction technique. FINDINGS: Images through the lung bases do not show any focal infiltrates or pleural effusions. The gallbladder is moderately fluid distended and there is suspicion for a possible small gallstone in the neck of the gallbladder. The large bowel is significantly gas distended from the cecum to the level of the proximal sigmoid colon, most likely due to large bowel ileus. The liver, pancreas, spleen and the bilateral adrenal glands appear unremarkable, given the limitation of lack of intravenous contrast. The bilateral kidneys do not show any evidence of hydronephrosis or nephrolithiasis. The prostate is mildly enlarged The bilateral ureters and the bilateral periureteral soft tissues and fat planes are unremarkable. The urinary bladder is unremarkable, without any evidence of wall thickening, calculi or filling defects. The small bowel appears unremarkable, without any evidence of small bowel obstruction or bowel wall thickening. There is no CT evidence of pericecal inflammatory change or ileocecal mesenteric adenitis. The ileocecal junction appears unremarkable. The appendix is not visualized There is no CT evidence of acute colonic diverticulitis or colitis or large bowel obstruction. There is mild large bowel diverticulosis. There is no pathological lymphadenopathy in the retroperitoneum or in the pelvic region. There is no evidence of free fluid or free air in the abdomen or the pelvic region. There is no clinically significant abdominal aortic aneurysm. There is presence of a small periumbilical ventral hernia defect The visualized lumbar spine shows multilevel degenerative change. The paravertebral soft tissues are unremarkable. The remainder of the pelvic structures are unremarkable. IMPRESSION: The gallbladder is moderately fluid distended and there is suspicion for a possible small gallstone in the neck of the gallbladder. This finding can be assessed with an ultrasound of the gallbladder. The large bowel is significantly gas distended from the cecum to the level of the proximal sigmoid colon, most likely due to large bowel ileus. There is no colitis, acute diverticulitis or large bowel obstruction Electronically signed by: Lui Fuentes MD 08/11/2017 8:57 AM CDT Workstation: [id number]
[2017-08-11] MEDS ORDERED: KCL 20MEQ/WATER FOR INJ 100ML 20 MEQ in PREMIX BAG 1 BAG IVPB ONE (09:39)
[2017-08-11] MEDS: SODIUM CHLORIDE 0.9% (FLUSH) 10 ML SYG IV SCH ×2 (10:00→20:45)
[2017-08-11] MEDS ORDERED: KCL 20MEQ/WATER FOR INJ 100ML 100 ML IVPB ONE (10:17)
[2017-08-11] MEDS ORDERED: BISACODYL SUPPOSITORY 10 MG PR ONE (10:19)
[2017-08-11] MEDS: ENOXAPARIN SODIUM 30 MG/0.3 ML SYG SUBCU SCH ×2 (11:26→22:33)
--- NOTE | 2017-08-11 11:57 | PN ---
DATE: 08/11/17 SUPERVISING PHYSICIAN: Demond Sierra M.D. SUBJECTIVE: The patient is lying in his hospital bed. Yesterday evening he said that his abdominal pain was located in the epigastric region but it has now moved to the left upper and left lower quadrant, but he does feel somewhat better than yesterday. He denies any chest pain or shortness of breath and feels like he is progressing well with his physical therapy for his left knee. OBJECTIVE: VITAL SIGNS: He is afebrile, heart rate is mostly in the 60s, blood pressure 134/85, respiratory rate 20, O2 sat is 93% on room air. RESPIRATORY: Essentially clear to auscultation bilaterally. Somewhat diminished at the bases. CARDIAC: Regular rate and rhythm. ABDOMEN: Soft. It is non-tender on the right side but it is diffusely tender on the left side and moderate tenderness on the left lower quadrant. He is obese. Bowel sounds are normal. They are hyperactive in the left upper quadrant. EXTREMITIES: No cyanosis, clubbing or edema. His bilateral pedal pulses are palpable at +2. The dressing to his left knee is dry and intact. LABORATORY: White count is 7.1, hemoglobin 11.1, hematocrit 33.6. Blood sugars have run between 154 and 180. Sodium 139, potassium 3.3, chloride 104, carbon dioxide 31, BUN 19, creatinine 0.83, calcium 7.7, alkaline phosphatase 6.1. RADIOLOGY: Abdominal x-ray per radiology interpretation shows no significant interval change with persistent gaseous distention of the colon which may be related to an ileus. CT of the abdomen per radiology interpretation shows the gallbladder is moderately fluid distended and there is suspicion for a possible small gallstone in the neck of the gallbladder. The large bowel is significantly gas distended from the cecum to the level of the proximal sigmoid colon most likely due to large bowel ileus. There is no colitis, acute diverticulitis or large bowel obstruction. All other labs and films have been reviewed via the EMR. ASSESSMENT: 1. Osteoarthritis especially of the left knee status post left total knee arthroplasty postoperative day #[address] Travis Maynard, orthopedic surgeon. 2. Postoperative ileus. 3. Chronic diabetes mellitus. 4. Hypertension. 5. Morbid obesity. 6. History of mild constipation. 7. Mild hypokalemia. 8. Possible cholelithiasis. PLAN: We will continue present supportive care. He will continue to be NPO. I have given him some supplemental potassium. I will also order a sonogram to rule out gallstones. I have consulted Dr. Baker for in the morning. I have also repeated some lab and abdominal x-ray in the morning. I have encouraged him to walk frequently and I have also ordered a Dulcolax suppository. He will continue with his physical therapy for strengthening and conditioning. I have also encouraged good pulmonary hygiene. He is getting Accu-Cheks every 6 hours with sliding scale. I have discontinued his scheduled Levemir for now since he is NPO. I have also stopped his 6 additional units of NovoLog that he usually gets. He is on oral Beta Blockers and an ARB routinely and since he is not getting his medications, will need to watch his heart rate and blood pressure closely in case he needs some IV medication. Otherwise we will continue to monitor the patient closely and follow as needed. Dr. Sierra is the collaborating physician and available for consultation. #[id number] [facility]
[2017-08-11] MEDS: SODIUM CHLORIDE 0.9% (FLUSH) 10 ML SYG IV PRN (19:28)
[2017-08-11] MEDS: DOCUSATE CALCIUM 240 MG CAP PO SCH (20:45)
[2017-08-12] MEDS: INSULIN LISPRO 100 UNITS/ML PEN SUBCU SCH ×4 (00:09→20:52)
[2017-08-12] MEDS: HYDROmorphone HCL INJ 2 MG/ML VIAL IV PRN ×2 (00:15→22:33)
[2017-08-12] MEDS: SODIUM CHLORIDE 0.9% (FLUSH) 10 ML SYG IV PRN ×2 (00:16→22:33)
[2017-08-12] MEDS: KCL 20MEQ/D5 1/2NS 1,000 ML IVS PRN (05:34)
[2017-08-12] MEDS: IV SET AND CAP CHANGE INJ INJ SCH (06:02)
--- NOTE | 2017-08-12 07:20 | RAD ---
EXAM DESCRIPTION: Abdomen 1 View CLINICAL HISTORY: 72 years Male, ileus COMPARISON: None. FINDINGS: There is a large amount of gas scattered throughout the colon. No dilated small bowel loops are identified. No suspicious intra-abdominal calcification or mass. No concerning bone lesion. IMPRESSION: Large amount of colonic stool and gas consistent with provided history of ileus. Distal colonic obstruction could have a similar appearance. Electronically signed by: Mike oRdríguez MD 08/12/2017 7:19 AM CDT
[2017-08-12] MEDS: CELECOXIB 100 MG CAP PO SCH ×2 (07:23→16:59)
[2017-08-12] MEDS: MAGNESIUM OXIDE 400 MG TAB PO SCH (09:33)
[2017-08-12] MEDS: BIFIDOBACTERIUM INFANTIS 4 MG CAP PO SCH ×2 (09:33→20:47)
[2017-08-12] MEDS: SODIUM CHLORIDE 0.9% (FLUSH) 10 ML SYG IV SCH ×2 (09:34→20:12)
[2017-08-12] MEDS: LOSARTAN POTASSIUM 100 MG TAB PO SCH (09:49)
[2017-08-12] MEDS: METOPROLOL SUCCINATE XL 25 MG TAB PO SCH (09:51)
[2017-08-12] MEDS ORDERED: SODIUM PHOS/BIPHOS ENEMA ADULT 133 ML BTTL PR ONE ×2 (10:16→11:24)
--- NOTE | 2017-08-12 10:55 | US ---
EXAM DESCRIPTION: Gall Bladder CLINICAL HISTORY: gallstone?, Ileus COMPARISON: 11 August 2017 TECHNIQUE: Right upper quadrant ultrasound] FINDINGS: Hepatic steatosis is observed. There is no bile duct dilatation. The common bile duct measures 5.3 mm. Evaluation of the gallbladder reveals no stones. The pancreas is poorly visualized. The upper abdominal aorta and the inferior vena cava are unremarkable. The right kidney is normal in size, shape, and echotexture. IMPRESSION: 1. Hepatic steatosis. 2. No gallstones are seen. 3. The exam is limited by body habitus Electronically signed by: Yusef Galeano MD 08/12/2017 10:54 AM CDT
--- NOTE | 2017-08-12 11:22 | PN ---
DATE: 08/12/17 SUBJECTIVE: The patient is lying in the bed with fairly significantly distended abdomen. Some discomfort is present on right and left side. He is very hungry , but is currently NPO because of the significant dilated colon with gas and distention being present. No nausea or vomiting. He states that when he has a soapsuds enema, he ends up passing a lot of fluid and gas with the fluid primarily being that of the enema. A large amount of gas is passed. He is belching occasionally. He is now consciously trying to avoid a lot of the Dilaudid and other pain medications which may be contributing to some of his ileus state. He states after a previous surgery, he has had some problems with GI distention as well, possibly related to the medicinal aspects of recovery postoperatively. OBJECTIVE: VITAL SIGNS: Afebrile. Pulse 76. Blood pressure 149/77. Pulse oximetry 95% on room air. No significant weight recently. LUNGS: Clear. HEART: Regular with some slight irregularities present. ABDOMEN: Very quiet and somewhat sparse bowel tone activity though some is present. He is somewhat tender on the left and the right sides of his abdomen. Abdominal wall thickness minimizes the effectiveness of percussion to demonstrate tympany. Repeat x-ray today of the abdomen shows significant distention of the colon and the possibility of a distal colon obstruction to be considered. No significant small bowel gas distention noted and no significant gastric distention evident. ASSESSMENT: 1. Postoperative day #5, left total knee arthroplasty, performed by Dr. Maynard, orthopedic surgeon. 2. Chronic osteoarthritis, failing outpatient therapy and requiring surgical intervention to assist with symptom control. 3. Significant abdominal discomfort with distention suggesting a postoperative ileus with significant colon distention with gas and diminished bowel tones. Probably related to analgesia and other medications postoperatively administered. 4. Abnormal CT scan with bowel distention and also the possibility noted of gallstone and cholecystitis which was not fully appreciated on ultrasound study performed earlier today. 5. Diabetes mellitus, currently on insulin therapy with the dose having to be adjusted down with him being NPO. 6. History of hypertension. 7. History of coronary artery disease with history of coronary stents, on medication support. 8. Morbid obesity. 9. History of mild constipation. 10. Mild hypokalemia, showing improvement. PLAN: The patient will be given another dose of Fleet's enema, which is lower volume of liquids to see if it will help open up the removal of some of the colon gas. The patient is to be seen by Dr. Baker, general surgeon, to assist with the ongoing treatment options and course to be taken. He may benefit from either a rectal tube to decompress and continued enemas. He states Milk of Magnesia has no effect upon his gut, so he may benefit from some other oral laxatives when clinically indicated from a general surgical standpoint. Continue to observe blood pressure as well as diabetes control and continue rehab. Physical therapists state he is making good progress in his postoperative rehabilitation after the left total knee arthroplasty. [facility][id number] [facility]
[2017-08-12] MEDS: ENOXAPARIN SODIUM 30 MG/0.3 ML SYG SUBCU SCH ×2 (11:42→22:34)
--- NOTE | 2017-08-12 13:12 | CONS ---
DATE OF CONSULTATION: 08/12/17 HISTORY OF PRESENT ILLNESS: The patient is a 72-year-old male who underwent a left total knee replacement last week. He has developed abdominal distention, discomfort, and has been belching. He has not vomited. He is passing gas, but has not passed significant stool. He denies preoperative change in his bowel habits, denies melanotic stools or blood per rectum. He states he probably had his last colonoscopy in 1993 and states that there were no polyps found at that time. PAST MEDICAL HISTORY: 1. Coronary artery stenting. 2. Right total knee arthroplasty in the distant past. 3. Left total knee arthroplasty last week. PAST SURGICAL HISTORY: MEDICATIONS AT TIME OF ADMISSION: 1. NovoLog insulin. 2. Isosorbide. 3. Losartan. 4. Metoprolol. 5. Aspirin. 6. Atorvastatin. 7. Nitroglycerin. ALLERGIES: PENICILLIN. FAMILY HISTORY: Noncontributory. SOCIAL HISTORY: The patient is . He does not smoke. He drinks minimally. REVIEW OF SYSTEMS: Insignificant except as noted in the history of present illness. PHYSICAL EXAMINATION: GENERAL: The patient is awake, alert, cooperative, in minimal to moderate distress. VITAL SIGNS: The patient is currently afebrile, normotensive. HEENT: Sclerae nonicteric. Mucous membranes moist. CHEST: Equal breath sounds bilaterally. ABDOMEN: Soft, distended, minimally tender. There is no guarding, no rebound. Bowel sounds are decreased. No inguinal hernias or umbilical hernia are identified. There are no surgical scars on the abdomen. RECTAL: Deferred. EXTREMITIES: Without cyanosis, clubbing or edema. LABORATORY: Today, white count 7,000, hemoglobin 11.2, platelet count 270,000, neutrophils 62%. Electrolytes reveal potassium 3.4, creatinine 0.71. Liver function tests within normal limits. Lipase within normal limits. RADIOLOGY: Review of his x-rays reveal dilated colon with no small bowel gas identified and no free air. There is no air noted in the rectum. CT scan that was performed 2 days ago was essentially unremarkable other than there was moderately distended gallbladder and question of stones on CT scan. There was no dilation of the small bowel. No other significant pathology was identified. Ultrasound of the gallbladder today is essentially unremarkable. ASSESSMENT: 1. Likely postoperative ileus. There is risk of a distal colonic obstruction, but it is unlikely statistically. RECOMMENDATION: Begin clear liquids. Continue ambulation. Would minimally stimulate the rectum from below and follow the patient expectantly. #[id number] [facility] [place]
[2017-08-12] MEDS: CYCLOBENZAPRINE HCL 10 MG TAB PO PRN (13:26)
[2017-08-12] MEDS: HYDROcodone 5MG/APAP 325MG 1 EA TAB PO PRN (13:26)
[2017-08-12] MEDS: ONDANSETRON INJ 4 MG/2 ML VIAL IV PRN (15:44)
[2017-08-12] MEDS ORDERED: GLUCAGON INJ 1 MG VIAL SUBCU PRN (16:52)
[2017-08-12] MEDS: ALUMINUM & MAGNESIUM HYDROXIDE 30 ML UD PO PRN (18:07)
[2017-08-12] MEDS: traMADol HCL 50 MG TAB PO PRN (19:40)
[2017-08-12] MEDS: DOCUSATE CALCIUM 240 MG CAP PO SCH (20:47)
[2017-08-12] MEDS: TEMAZEPAM 15 MG CAP PO PRN (21:00)
[2017-08-13] MEDS: KCL 20MEQ/D5 1/2NS 1,000 ML IVS PRN (02:08)
[2017-08-13] MEDS: traMADol HCL 50 MG TAB PO PRN (06:21)
[2017-08-13] MEDS: INSULIN LISPRO 100 UNITS/ML PEN SUBCU SCH ×4 (07:56→21:42)
[2017-08-13] MEDS: CELECOXIB 100 MG CAP PO SCH ×2 (07:57→17:20)
[2017-08-13] MEDS: MAGNESIUM OXIDE 400 MG TAB PO SCH (09:07)
[2017-08-13] MEDS: METOPROLOL SUCCINATE XL 25 MG TAB PO SCH (09:07)
[2017-08-13] MEDS: LOSARTAN POTASSIUM 100 MG TAB PO SCH (09:08)
[2017-08-13] MEDS: SODIUM CHLORIDE 0.9% (FLUSH) 10 ML SYG IV SCH ×2 (09:08→21:30)
[2017-08-13] MEDS: BIFIDOBACTERIUM INFANTIS 4 MG CAP PO SCH ×2 (09:08→21:38)
--- NOTE | 2017-08-13 09:19 | RAD ---
EXAM DESCRIPTION: Abdomen Flat Upright CLINICAL HISTORY: 72 years Male, Ileus COMPARISON: August 12, 2017 FINDINGS: Marked gaseous distention of the colon including the right, transverse, left, and a portion of the sigmoid colon is little changed from the previous day's study with no significant small bowel distention. The pattern is not typical of a sigmoid or cecal volvulus and is most consistent with a colonic ileus or atony. Distal colonic obstruction is thought less likely but not entirely excluded, as previously described. No free abdominal air is seen. Mild degenerative changes in the thoracolumbar spine and to a lesser extent the hips are noted. No unusual calculi evident. IMPRESSION: No significant change in the abdomen with large air distended colon most consistent with an ileus or atony or less likely a distal colonic obstruction. No small bowel obstruction or significant improvement from the previous day noted. Electronically signed by: Ramy Streeter MD 08/13/2017 9:18 AM CDT
--- NOTE | 2017-08-13 10:02 | PN ---
DATE: 08/13/17 SUBJECTIVE: The patient states he feels better today with less fullness and less distention of his intestinal colon. Last evening, he stated the discomfort was pretty bad and he laid on his right side and a large volume of colon gas was expelled and he was then able to sleep all night. He is tolerating his clear liquid diet. He walked four times in the hallway yesterday and is going to be walking even more today. He is soon to be evaluated with further intervention by Dr. Baker to assist with the resolution of the significant colon distention with ileus. OBJECTIVE: VITAL SIGNS: Afebrile. Pulse 66. Blood pressure 138/79. Pulse oximetry 94% on room air. LUNGS: Clear. HEART: Regular. Encouraged deep breathing. ABDOMEN: Still distended, though noticeably softer today with less discomfort upon palpation. Bowel tones are still somewhat hypoactive, but area present throughout the abdomen. RADIOLOGY: Repeat x-ray shows little significant change, but we feel there is some slight improvement compared to yesterday's films. Still with significant colon distention filled with gas. ASSESSMENT: 1. Postoperative day #6, left total knee arthroplasty, performed by Dr. Maynard, orthopedic surgeon. 2. Chronic osteoarthritis, failing outpatient therapy and requiring surgical intervention to assist with symptom control. 3. Significant abdominal discomfort with distention suggesting a postoperative ileus with significant colon distention with gas and diminished bowel tones. Probably related to analgesia and other medications postoperatively administered. 4. Abnormal CT scan with bowel distention and also the possibility noted of gallstone and cholecystitis which was not fully appreciated on ultrasound study performed earlier today. 5. Diabetes mellitus, currently on insulin therapy with the dose having to be adjusted down with him being NPO. 6. History of hypertension. 7. History of coronary artery disease with history of coronary stents, on medication support. 8. Morbid obesity. 9. History of mild constipation. 10. Mild hypokalemia, showing improvement. PLAN: Dr. Baker is coming to see the patient to assist with any modalities of improved peristalsis. Increase activity again today with repeat walking with saline lock. We will try to get him to a larger commode so he will be able to sit with more comfort and be able to pass large amounts of gas which are present. Continue rehabilitation. #[id number] [facility]
[2017-08-13] MEDS ORDERED: BISACODYL SUPPOSITORY 10 MG PR ONE (12:00)
[2017-08-13] MEDS: ENOXAPARIN SODIUM 30 MG/0.3 ML SYG SUBCU SCH ×2 (12:00→22:56)
[2017-08-13] MEDS: HYDROcodone 5MG/APAP 325MG 1 EA TAB PO PRN ×2 (19:03→22:55)
[2017-08-13] MEDS: POLYETHYLENE GLYCOL 3350 17 GM PCKT PO SCH (21:30)
[2017-08-13] MEDS: DOCUSATE CALCIUM 240 MG CAP PO SCH (21:38)
[2017-08-13] MEDS: TEMAZEPAM 15 MG CAP PO PRN (21:51)
[2017-08-14] MEDS: INSULIN LISPRO 100 UNITS/ML PEN SUBCU SCH ×4 (07:09→20:50)
[2017-08-14] MEDS: CELECOXIB 100 MG CAP PO SCH ×2 (07:33→16:30)
--- NOTE | 2017-08-14 07:41 | RAD ---
EXAM DESCRIPTION: Abdomen Flat Upright CLINICAL HISTORY: fu colon dilation COMPARISON: August 13, 2017 FINDINGS: AP supine and upright views of the abdomen continued to show air-filled distended loops of colon throughout the abdomen. Slightly less air is seen in the descending to sigmoid colon compared previous exam. No obvious colon wall thickening or thumbprinting is seen. No free intraperitoneal air. Scattered air-fluid levels are similar to previous exam. No air-filled dilated loops of small bowel. The visualized lung bases are unremarkable. IMPRESSION: No significant interval change in abdominal series with large air distended colon most consistent with an ileus or atony or less likely distal colonic obstruction Electronically signed by: Valente Salazar MD 08/14/2017 7:39 AM CDT
[2017-08-14] MEDS: BIFIDOBACTERIUM INFANTIS 4 MG CAP PO SCH ×2 (08:00→20:44)
[2017-08-14] MEDS: POLYETHYLENE GLYCOL 3350 17 GM PCKT PO SCH ×2 (08:00→20:44)
[2017-08-14] MEDS: LOSARTAN POTASSIUM 100 MG TAB PO SCH (08:00)
[2017-08-14] MEDS: MAGNESIUM OXIDE 400 MG TAB PO SCH (08:00)
[2017-08-14] MEDS: METOPROLOL SUCCINATE XL 25 MG TAB PO SCH (08:00)
[2017-08-14] MEDS: SODIUM CHLORIDE 0.9% (FLUSH) 10 ML SYG IV SCH ×2 (08:01→20:44)
[2017-08-14] MEDS: RIVAROXABAN 10 MG TAB PO SCH (10:59)
[2017-08-14] MEDS: ONDANSETRON INJ 4 MG/2 ML VIAL IV PRN (12:01)
--- NOTE | 2017-08-14 13:18 | PN ---
SUPERVISING PHYSICIAN: Ramy Starkey MD DATE: 08/14/17 SUBJECTIVE: The patient is lying in bed. He has just finished his 1800 calorie ADA lunch. He is only able to eat a small amount. He says that before he eats, his stomach feels good and after he eats, it feels somewhat taut. We will continue to monitor that closely. Otherwise, he denies any chest pain, nausea, vomiting, diarrhea. He did have a stool overnight and feels like the MiraLAX is helping very much. OBJECTIVE: VITAL SIGNS: Afebrile. Heart rate 63. Blood pressure 149/90. Respiratory rate 16. O2 saturation 99% on room air. LUNGS: Clear to auscultation bilaterally. CARDIAC: Regular rate and rhythm. ABDOMEN: Rounded, obese. Bowel sounds are positive. Nontender. EXTREMITIES: No cyanosis, clubbing or edema. NEUROLOGIC: Awake, alert and oriented times three. LABORATORY: Blood sugars have been running between 147 to 185. Abdominal x- ray per radiologic interpretation shows no significant interval change in abdomen series with large air distended colon most consistent with an ileus or atony or, less likely, distal colonic obstruction. All other labs and films have been reviewed via the EMR. ASSESSMENT: 1. Postoperative day #7, left total knee arthroplasty, performed by Dr. Maynard, orthopedic surgeon. 2. Significant abdominal discomfort with distention suggesting a postoperative ileus with significant colon distention with gas and diminished bowel tones, although those have normalized. 3. Chronic osteoarthritis failing outpatient therapy and requiring surgical intervention to assist with symptom control. 4. Abnormal CT scan with bowel distention and also the possibility noted of gallstone and cholecystitis which was not fully appreciated on ultrasound study performed earlier int he week. 5. Diabetes mellitus. 6. History of hypertension. 7. History of coronary artery disease. 8. Morbid obesity. 9. Mild constipation. 10. Mild hypokalemia, showing improvement. PLAN: Dr. Baker has seen the patient this morning and we discussed his case. We have advanced his diet to an 1800 calorie ADA. We will monitor how he tolerates that and repeat an x-ray in the morning. I will also do a BMP tomorrow to check his potassium. I will also monitor his blood sugars and adjust his insulin to his previous scheduled dosing. Clinically, he is improving, but we will need to see how he tolerates his meals as well as monitor his abdominal x-rays. He will need close followup after discharge with Dr. Eagle as well as Dr. Baker and then for his orthopedic issues, he will need to see Dr. Maynard. At this point, I have encouraged frequent ambulation as well as good pulmonary hygiene. We will continue to monitor the patient closely and follow as needed. Dr. Starkey is the collaborating physician and available for consultation. [facility][id number] [facility]
[2017-08-14] MEDS: ALUMINUM & MAGNESIUM HYDROXIDE 30 ML UD PO PRN (14:44)
[2017-08-14] MEDS: HYDROcodone 5MG/APAP 325MG 1 EA TAB PO PRN ×2 (16:27→22:19)
[2017-08-14] MEDS: DOCUSATE CALCIUM 240 MG CAP PO SCH (20:43)
[2017-08-14] MEDS: TEMAZEPAM 15 MG CAP PO PRN (22:19)
--- NOTE | 2017-08-15 07:07 | RAD ---
EXAM DESCRIPTION: Abdomen Flat Upright CLINICAL HISTORY: 72 years Male, ileus COMPARISON: August 14, 2017 FINDINGS: There is subsegmental atelectasis or scarring both lung bases. No free suboptimally gas. Again seen is a large amount of colonic gas resulting moderate colonic distention, unchanged from yesterday's exam. A single gas-filled small bowel loop in the left lower quadrant is at the upper limits of normal size and today's exam. No suspicious intraductal calcification or mass. IMPRESSION: Large amount of colonic gas resulting in moderate colonic distention, unchanged from yesterday. Differential considerations as described previously including ileus, no new abnormality. Electronically signed by: Mike Rodríguez MD 08/15/2017 7:06 AM CDT
[2017-08-15] MEDS: IV SET AND CAP CHANGE INJ INJ SCH (08:46)
[2017-08-15] MEDS: INSULIN LISPRO 100 UNITS/ML PEN SUBCU SCH ×2 (08:46→12:20)
[2017-08-15] MEDS: LOSARTAN POTASSIUM 100 MG TAB PO SCH (08:47)
[2017-08-15] MEDS: RIVAROXABAN 10 MG TAB PO SCH (08:47)
[2017-08-15] MEDS: POLYETHYLENE GLYCOL 3350 17 GM PCKT PO SCH (08:47)
[2017-08-15] MEDS: MAGNESIUM OXIDE 400 MG TAB PO SCH (08:47)
[2017-08-15] MEDS: METOPROLOL SUCCINATE XL 25 MG TAB PO SCH (08:47)
[2017-08-15] MEDS: CELECOXIB 100 MG CAP PO SCH (08:47)
[2017-08-15] MEDS: BIFIDOBACTERIUM INFANTIS 4 MG CAP PO SCH (08:47)
[2017-08-15] MEDS: SODIUM CHLORIDE 0.9% (FLUSH) 10 ML SYG IV SCH (08:47)
--- NOTE | 2017-08-15 08:54 | PN ---
DATE: 08/15/17 SUBJECTIVE: Mr. Leal is doing well and has started to have bowel movements. OBJECTIVE: Afebrile. Vital signs stable. Wound is clean. There are no signs or symptoms of infection. ASSESSMENT: Status post total knee arthroplasty. PLAN: He will continue with his current regimen. We will continue to monitor for full return of bowel function. #[id number] [facility]
[2017-08-15 11:45] VITALS: TEMP 98.3; O2SAT 95
[2017-08-15 15:51] VITALS: BP 138/79
--- NOTE | 2017-08-15 21:07 | DS ---
SUPERVISING PHYSICIAN: Ramy Starkey M.D. DISCHARGE DIAGNOSIS: 1. Postoperative day #9 left total knee arthroplasty performed by Dr. Maynard, orthopedic surgeon. 2. Significant abdominal discomfort with distention with a postoperative ileus and significant colon distention with gas and diminished bowel tones with has normalized. 3. Chronic osteoarthritis failing outpatient therapy and requiring surgical intervention to assist with symptom control. 4. Abnormal CT scan with bowel distention, also possibility noted of gallstone and cholecystitis which was not fully appreciated on ultrasound study performed earlier in the week. 5. Diabetes mellitus. 6. Hypertension. 7. Coronary artery disease. 8. Morbid obesity. 9. Mild constipation. 10. Mild hypokalemia that has improved. HISTORY OF PRESENT ILLNESS: This is a 72 year-old male patient who was admitted on 08/06/17 for a left total knee arthroplasty per Dr. Maynard, orthopedic surgeon. Postoperatively he did very well. HOSPITAL COURSE: He went through his physical therapy without any issues and on postoperative day #3 he developed some abdominal pain with some belching and abdominal distention. On abdominal x-ray, it showed to be a possible postoperative ileus. He was placed on bowel rest. His abdominal pelvis CT per radiology interpretation showed a large bowel that was significantly gas distended from the cecum to the level of the proximal sigmoid colon that was most likely due to a large bowel ileus. There was no colitis, acute diverticulitis or any large bowel obstruction. He was also found to have a gallbladder that was moderately fluid distended and was suspicious for small gallstones in the neck of the gallbladder. Gallbladder ultrasound was done and per radiology interpretation shows hepatic steatosis and no gallstones were seen. He was also seen by Dr. Baker, general surgeon. He monitored his progress over the next few days. After several days of bowel rest his diet was slowly advanced. Yesterday he was given an 1800 calorie ADA diet. He had a very large bowel movement last night. He is much improved today and he is ready to be discharged home. DISCHARGE PLAN: The patient will be discharged home in stable condition. He is to resume his previous medications with the addition of MiraLAX daily. He will see Dr. Maynard for his orthopedic followup on 08/23/17 at 9:30 AM. He will get Hydrocodone and Cyclobenzaprine for his postoperative pain. He is to see Dr. Eagle, his primary care provider, on 08/20/17 at 11:00 AM. He is to continue with the MiraLAX. Dr. Baker also has suggested that the patient have a followup with a GI doctor for colonoscopy. His postoperative physical therapy will be at [facility]. He is to call Dr. Maynard for any postoperative issues. Followup with Dr. Eagle for any abdominal issues or return to the hospital. DISCHARGE MEDICATIONS: 1. Aspirin. 2. Potassium. 3. Nitrostat. 4. Metoprolol tartrate. 5. Losartan Hydrochlorothiazide. 6. Isosorbide. 7. Toujeo. 8. NovoLog. 9. Lipitor. 10. Tylenol. 11. Align. 12. Cyclobenzaprine. 13. Hydrocodone. 14. MiraLAX. 15. Xarelto times [address] Starkey is the collaborating physician available for consultation. [facility][id number] [facility]
== END 2017-08-15 14:30 | disposition home or self-care (01) | DRG 470 ==
LOC: AMB 03:58 → UNDOADMIN 14:27 → MS 14:27 → UNDOADMIN 08-13 12:12 → UNDODISIN 08-15 14:30
PROVIDERS: ADMIT Orthopaedic Surgery; ATTEND Nurse Practitioner Acute Care
PROC: 0SRD0J9 Replacement of Left Knee Joint with Synthetic Substitute, Cemented, Open Approach (ICD-10-PCS; principal; 2017-08-06 10:17)
DX: M17.12 Unilateral primary osteoarthritis, left knee (principal); K56.7 Ileus, unspecified; K80.10 Calculus of gallbladder with chronic cholecystitis without obstruction; Z68.43 Body mass index [BMI] 50.0-59.9, adult; E87.6 Hypokalemia; I10 Essential (primary) hypertension; I25.10 Atherosclerotic heart disease of native coronary artery without angina pectoris; E11.9 Type 2 diabetes mellitus without complications; K59.00 Constipation, unspecified; K21.9 Gastro-esophageal reflux disease without esophagitis; E66.01 Morbid (severe) obesity due to excess calories; Z96.651 Presence of right artificial knee joint; Z95.5 Presence of coronary angioplasty implant and graft; Z88.0 Allergy status to penicillin; Z79.4 Long term (current) use of insulin; Z86.718 Personal history of other venous thrombosis and embolism; Z79.82 Long term (current) use of aspirin

== ENCOUNTER → 2017-12-09 | Outpatient (CLI) | payer MEDICARE | LOC: GMAL 10:34 | PROVIDERS: ATTEND Family Medicine | DX: D51.3 Other dietary vitamin B12 deficiency anemia (principal); E55.9 Vitamin D deficiency, unspecified; E78.4 Other hyperlipidemia; Z12.5 Encounter for screening for malignant neoplasm of prostate | CPT/HCPCS: 82306; 82607; G0103 ==